=== PATIENT | female | born 1955 | race Caucasian/White ===

== ENCOUNTER → 2024-06-28 14:14 | Outpatient (REF) | payer MEDICARE, OTHER, SELFPAY | LOC: WDC 14:14 | PROVIDERS: ATTENDING PHYSICIAN Internal Medicine | DX: Z12.31 Encounter for screening mammogram for malignant neoplasm of breast (principal) | CPT/HCPCS: 77063; 77067 ==

== ENCOUNTER → 2024-11-24 14:42 | Outpatient (REF) | payer MEDICARE, OTHER, SELFPAY | LOC: RAD 14:42 | PROVIDERS: ATTENDING PHYSICIAN Internal Medicine Critical Care Medicine; FAMILY PHYSICIAN Internal Medicine | DX: D86.9 Sarcoidosis, unspecified (principal) | CPT/HCPCS: 71046 ==